=== PATIENT | male | born 1990 | race African-American/Black ===

== ENCOUNTER 2022-07-04 08:55 | Emergency (ER) | payer SELFPAY ==
[~2022-07-04] VITALS: Ht 165.1 cm; Wt 108.9 kg
[2022-07-04 09:04] VITALS: BP 123/72
[2022-07-04] MEDS ORDERED: CIPR7.5D9 LEFT EAR ×2 (09:49→09:51)
--- NOTE | 2022-07-04 09:56 | NUR ---
Patient discharged to home in stable condition. Written and verbal after care instructions given. Patient verbalizes understanding of instruction.
== END 2022-07-04 09:56 | disposition home or self-care (01) ==
LOC: ER 09:00
DX: H60.502 Unspecified acute noninfective otitis externa, left ear (principal)